=== PATIENT | male | born 1970 | race Asian ===

== ENCOUNTER 2023-07-05 09:07 | Inpatient (IN) ==
[2023-07-05 11:18] LABS: ABS Lymphocytes 0.4 10^3/uL (1.0-4.8); ABS Monocytes 0.3 10^3/uL (0.0-1.1); ABS Neutrophils 5.7 10^3/uL (1.5-7.6); ABS Nucleated RBC 0.02 10^3/ul; Eosinophil % 0.3 %; Hemoglobin 13.1 g/dL (13.2-16.3); Lymphocyte % 6.6 %; Mean Corpuscular Hemoglobin 32.2 pg (27-33); Mean Corpuscular Hgb Conc 34.5 g/dL (31-36); Mean Corpuscular Volume 93.3 fL (80-97); Mean Platelet Volume 7.8 fL (7.5-11.2); Nucleated Red Blood Cells % 0.3 %/100WBC (0.0-0.8); Platelet Count 273 10^3/uL (150-450); Red Blood Count 4.07 10^6/uL (4.06-5.63); White Blood Count 6.5 10^3/uL (3.6-10.2)
[2023-07-05] MEDS ORDERED: NS 0.9% 1000 ml BAG 1,000 ML IV ONE ×2 (11:31→11:47)
[2023-07-05 11:35] LABS: Urine Appearance Clear; Urine Bilirubin Negative (Negative); Urine Blood Negative (Negative); Urine Color Yellow; Urine Glucose Negative (Negative); Urine Ketones 1+ (Negative); Urine Nitrite Negative (Negative); Urine Protein 2+(100 mg/dL) (Negative); Urine Urobilinogen Positive (Negative)
[2023-07-05 11:38] LABS: Albumin 4.5 g/dL (3.2-5.2); Albumin/Globulin Ratio 1.5 (1-3); Calcium 10.3 mg/dL (8.6-10.3); Creatinine, Serum 1.03 mg/dL (0.67-1.17); Globulin 3.1 g/dL (2-4); Potassium 3.8 mmol/L (3.5-5.0); Total Bilirubin 0.9 mg/dL (0.2-1.0); Total Protein 7.6 g/dL (6.4-8.9); eGFR CKD-EPI 87.4 (>60)
[2023-07-05] MEDS ORDERED: Ondansetron 4 mg VIAL 2 MG/ML 2 ml VIAL IV ONE (11:47)
[2023-07-05 11:51] LABS: Urine Bacteria Absent (Absent); Urine Red Blood Cell Trace(0-2/hpf) (Absent); Urine Squamous Epithelial Cell Present (Absent); Urine White Blood Cell Trace(0-5/hpf) (Absent)
[2023-07-05] MEDS ORDERED: Dexamethasone IV 4 MG/ML VIAL 1 ml VIAL IV SLOW PU ONE (12:02)
[2023-07-05] MEDS: Enoxaparin 40 MG/0.4 ML SYR SUBCUT SCH (16:17)
[2023-07-05] MEDS ORDERED: Dexamethasone IV 4 MG/ML VIAL 1 ml VIAL IV SLOW PU SCH (18:00)
[2023-07-05] MEDS ORDERED: Iohexol 350 (CONTRAST) 500 ML MDV IV ONE (19:23)
[2023-07-05] MEDS ORDERED: Gadoteridol (CONTRAST) 279.3 MG/ML 10 ML IV ONE (21:01)
[2023-07-06] MEDS: Dexamethasone IV 4 MG/ML VIAL 1 ml VIAL IV SLOW PU SCH ×4 (00:53→17:44)
[2023-07-06 12:02] LABS: Hematocrit 35.7 % (38-53); Hemoglobin 12.3 g/dL (13.2-16.3); Mean Corpuscular Hgb Conc 34.4 g/dL (31-36); Mean Corpuscular Volume 93.1 fL (80-97); Mean Platelet Volume 7.9 fL (7.5-11.2); Platelet Count 251 10^3/uL (150-450); Red Blood Count 3.84 10^6/uL (4.06-5.63); Red Cell Distribution Width 14.7 % (12-17); White Blood Count 8.4 10^3/uL (3.6-10.2)
[2023-07-06 12:15] LABS: Calcium 9.7 mg/dL (8.6-10.3); Creatinine, Serum 1.07 mg/dL (0.67-1.17); Magnesium 1.8 mg/dL (1.9-2.7); Potassium 3.7 mmol/L (3.5-5.0); eGFR CKD-EPI 83.5 (>60)
[2023-07-06] MEDS ORDERED: Ondansetron 4 mg VIAL 2 MG/ML 2 ml VIAL IV PRN (12:46)
[2023-07-06] MEDS: Enoxaparin 40 MG/0.4 ML SYR SUBCUT SCH (16:41)
[2023-07-07] MEDS: Dexamethasone IV 4 MG/ML VIAL 1 ml VIAL IV SLOW PU SCH ×4 (00:15→17:47)
[2023-07-08] MEDS: Dexamethasone IV 4 MG/ML VIAL 1 ml VIAL IV SLOW PU SCH ×3 (00:55→12:49)
[2023-07-08 12:47] VITALS: BP 160/85
== END 2023-07-08 16:34 | disposition home or self-care (01) | DRG 136 ==
LOC: ED 09:07 → EDHOLD 09:07 → SUATTDRO 15:29 → EDHOLD 07-06 16:06 → MEDTELE 07-06 16:56
PROVIDERS: ADMIT Student in an Organized Health Care Education/Training Program; ATTEND Hospitalist

== ENCOUNTER 2023-08-09 19:40 | Inpatient (IN) ==
[2023-08-09] MEDS ORDERED: Ondansetron 4 mg VIAL 2 MG/ML 2 ml VIAL IV ONE (20:08)
[2023-08-09] MEDS ORDERED: Dexamethasone IV 4 MG/ML VIAL 1 ml VIAL IV SLOW PU ONE (20:09)
[2023-08-09 20:44] LABS: INR 0.97 (0.83-1.13)
[2023-08-09 20:47] LABS: Hematocrit 41.9 % (38-53); Hemoglobin 14.2 g/dL (13.2-16.3); Mean Corpuscular Hemoglobin 31.1 pg (27-33); Mean Corpuscular Hgb Conc 33.9 g/dL (31-36); Mean Corpuscular Volume 91.7 fL (80-97); Mean Platelet Volume 7.1 fL (7.5-11.2); Platelet Count 270 10^3/uL (150-450); Red Blood Count 4.57 10^6/uL (4.06-5.63); Red Cell Distribution Width 16.1 % (12-17); White Blood Count 15.9 10^3/uL (3.6-10.2)
[2023-08-09 21:07] LABS: ALT 36 U/L (7-52); AST 24 U/L (13-39); Albumin 3.9 g/dL (3.2-5.2); Albumin/Globulin Ratio 1.3 (1-3); Alkaline Phosphatase 144 U/L (35-149); Anion Gap 11 mmol/L (2-16); Blood Urea Nitrogen 31 mg/dL (6-24); C Reactive Protein 19.84 mg/L (<8.01); CO2 Carbon Dioxide 26 mmol/L (22-32); Calcium 9.4 mg/dL (8.6-10.3); Chloride 94 mmol/L (101-111); Creatinine, Serum 0.71 mg/dL (0.67-1.17); Glucose 207 mg/dL (70-100); Magnesium 2.1 mg/dL (1.9-2.7); Potassium 3.6 mmol/L (3.5-5.0); Sodium 131 mmol/L (135-145); Total Bilirubin 1.1 mg/dL (0.2-1.0); Total Protein 6.9 g/dL (6.4-8.9); eGFR CKD-EPI 110.4 (>60)
[2023-08-09 21:20] LABS: ABS Basophils 0.1 10^3/uL (0.0-0.1); ABS Lymphocytes 0.1 10^3/uL (1.0-4.8); ABS Monocytes 0.5 10^3/uL (0.0-1.1); ABS Neutrophils 15.2 10^3/uL (1.5-7.6); ABS Nucleated RBC 0.04 10^3/ul; Lymphocyte % 0.9 %; Nucleated Red Blood Cells % 0.3 %/100WBC (0.0-0.8)
[2023-08-09 21:21] LABS: Alcohol, S < 13 mg/dL (<13); RBC Morphology Normal (Normal)
[2023-08-09] MEDS ORDERED: Ondansetron 4 mg VIAL 2 MG/ML 2 ml VIAL IV PRN (22:06)
[2023-08-10] MEDS: Dexamethasone IV 4 MG/ML VIAL 1 ml VIAL IV SLOW PU SCH ×4 (03:11→20:42)
[2023-08-10] MEDS: NS 0.9% 1000 ml BAG 1,000 ML IV SCH (08:28)
[2023-08-10] MEDS: Metoprolol Tartrate 5 mg VIAL 5 ml VIAL (1 mg/ml) IV PRN (18:02)
[2023-08-11] MEDS: Dexamethasone IV 4 MG/ML VIAL 1 ml VIAL IV SLOW PU SCH ×4 (03:13→21:04)
[2023-08-11] MEDS: Metoprolol Tartrate 5 mg VIAL 5 ml VIAL (1 mg/ml) IV PRN ×3 (06:42→21:04)
[2023-08-11 07:45] LABS: ABS Basophils 0.1 10^3/uL (0.0-0.1); ABS Lymphocytes 0.2 10^3/uL (1.0-4.8); ABS Monocytes 0.1 10^3/uL (0.0-1.1); ABS Neutrophils 9.7 10^3/uL (1.5-7.6); ABS Nucleated RBC 0.01 10^3/ul; Hematocrit 39.5 % (38-53); Hemoglobin 13.5 g/dL (13.2-16.3); Lymphocyte % 1.6 %; Mean Corpuscular Hgb Conc 34.1 g/dL (31-36); Mean Corpuscular Volume 90.7 fL (80-97); Nucleated Red Blood Cells % 0.1 %/100WBC (0.0-0.8); Platelet Count 197 10^3/uL (150-450); Red Blood Count 4.36 10^6/uL (4.06-5.63); Red Cell Distribution Width 16.7 % (12-17); White Blood Count 10.1 10^3/uL (3.6-10.2)
[2023-08-11] MEDS: NS 0.9% 1000 ml BAG 1,000 ML IV SCH (08:46)
[2023-08-11 09:00] LABS: Calcium 8.7 mg/dL (8.6-10.3); Creatinine, Serum 0.67 mg/dL (0.67-1.17); Magnesium 2.1 mg/dL (1.9-2.7); Potassium 4.1 mmol/L (3.5-5.0); eGFR CKD-EPI 112.3 (>60)
[2023-08-11] MEDS ORDERED: Morphine 2 MG/ML SYRINGE IV PRN (14:25)
[2023-08-11] MEDS: Morphine 2 MG/ML SYRINGE IV PRN (21:04)
[2023-08-11] MEDS: Nystatin TOP POWDER 15 GM BTL TOPICAL SCH (23:27)
[2023-08-12] MEDS: NS 0.9% 1000 ml BAG 1,000 ML IV SCH (03:50)
[2023-08-12] MEDS: Dexamethasone IV 4 MG/ML VIAL 1 ml VIAL IV SLOW PU SCH ×4 (03:51→20:18)
[2023-08-12] MEDS: Metoprolol Tartrate 5 mg VIAL 5 ml VIAL (1 mg/ml) IV PRN ×3 (03:52→20:18)
[2023-08-12] MEDS: Morphine 2 MG/ML SYRINGE IV PRN ×2 (09:08→16:32)
[2023-08-12] MEDS: Nystatin TOP POWDER 15 GM BTL TOPICAL SCH ×3 (10:51→20:18)
[2023-08-12] MEDS ORDERED: Remdesivir 100 mg Vial 200 MG in NS 0.9% 250 ml 210 ML IV ONE (13:00)
[2023-08-12 13:04] LABS: INR 1.08 (0.83-1.13)
[2023-08-12 14:04] LABS: Albumin 3.2 g/dL (3.2-5.2); Albumin/Globulin Ratio 1.1 (1-3); Creatinine, Serum 0.58 mg/dL (0.67-1.17); Globulin 2.8 g/dL (2-4); Potassium 4.1 mmol/L (3.5-5.0); Total Bilirubin 1.2 mg/dL (0.2-1.0); eGFR CKD-EPI 117.3 (>60)
[2023-08-12] MEDS ORDERED: PPN (PERIPHERAL) 24 HR with D10W 1000 ml BAG 1,000 ML, Amino Acid Infusion 10% 850 ML, ... IV SCH (17:00)
[2023-08-13] MEDS: Metoprolol Tartrate 5 mg VIAL 5 ml VIAL (1 mg/ml) IV PRN ×4 (02:09→23:26)
[2023-08-13] MEDS: Dexamethasone IV 4 MG/ML VIAL 1 ml VIAL IV SLOW PU SCH ×4 (02:16→22:14)
[2023-08-13] MEDS: Morphine 2 MG/ML SYRINGE IV PRN (06:46)
[2023-08-13] MEDS: Remdesivir 100 mg Vial 100 MG in NS 0.9% 250 ml 230 ML IV SCH (08:21)
[2023-08-13] MEDS: Nystatin TOP POWDER 15 GM BTL TOPICAL SCH ×3 (08:21→22:14)
[2023-08-13 09:05] LABS: INR 1.16 (0.83-1.13)
[2023-08-13 09:13] LABS: Albumin 3.2 g/dL (3.2-5.2); Albumin/Globulin Ratio 1.2 (1-3); Calcium 9.1 mg/dL (8.6-10.3); Creatinine, Serum 0.55 mg/dL (0.67-1.17); Globulin 2.6 g/dL (2-4); Magnesium 2.2 mg/dL (1.9-2.7); Phosphorus 2.4 mg/dL (2.5-5.0); Total Bilirubin 1.2 mg/dL (0.2-1.0); Total Protein 5.8 g/dL (6.4-8.9); eGFR CKD-EPI 119.2 (>60)
[2023-08-13] MEDS: PPN (PERIPHERAL) 24 HR with D10W 1000 ml BAG 1,000 ML, Amino Acid Infusion 10% 850 ML, ... IV SCH ×2 (17:23→17:30)
[2023-08-13] MEDS ORDERED: Dextrose 50% Syringe 50 ml 25 GM/50 ML SYRINGE IV PUSH PRN (20:24)
[2023-08-14] MEDS: Dexamethasone IV 4 MG/ML VIAL 1 ml VIAL IV SLOW PU SCH ×4 (03:29→20:29)
[2023-08-14] MEDS: Metoprolol Tartrate 5 mg VIAL 5 ml VIAL (1 mg/ml) IV PRN (06:28)
[2023-08-14 07:53] LABS: INR 1.22 (0.83-1.13)
[2023-08-14 08:10] LABS: Prealbumin 13 mg/dL (18-38)
[2023-08-14] MEDS: Remdesivir 100 mg Vial 100 MG in NS 0.9% 250 ml 230 ML IV SCH (08:30)
[2023-08-14 08:43] LABS: ALT 22 U/L (7-52); Albumin 3.3 g/dL (3.2-5.2); Albumin/Globulin Ratio 1.3 (1-3); Alkaline Phosphatase 159 U/L (35-149); Anion Gap 10 mmol/L (2-16); Blood Urea Nitrogen 37 mg/dL (6-24); CO2 Carbon Dioxide 25 mmol/L (22-32); Calcium 9.4 mg/dL (8.6-10.3); Chloride 102 mmol/L (101-111); Cholesterol 230 mg/dL; Creatinine, Serum 0.53 mg/dL (0.67-1.17); Globulin 2.6 g/dL (2-4); Glucose 175 mg/dL (70-100); Magnesium 2.2 mg/dL (1.9-2.7); Sodium 137 mmol/L (135-145); Total Bilirubin 1.6 mg/dL (0.2-1.0); Total Protein 5.9 g/dL (6.4-8.9); Triglycerides 148 mg/dL; eGFR CKD-EPI 120.6 (>60)
[2023-08-14] MEDS: Nystatin TOP POWDER 15 GM BTL TOPICAL SCH ×3 (08:49→20:32)
[2023-08-14 13:22] LABS: Phosphorus 2.3 mg/dL (2.5-5.0)
[2023-08-14] MEDS: Morphine 2 MG/ML SYRINGE IV PRN ×2 (16:05→21:14)
[2023-08-14] MEDS: PPN (PERIPHERAL) 24 HR with D10W 1000 ml BAG 1,000 ML, Amino Acid Infusion 10% 850 ML, ... IV SCH (17:11)
[2023-08-15] MEDS: Dexamethasone IV 4 MG/ML VIAL 1 ml VIAL IV SLOW PU SCH ×4 (02:47→20:25)
[2023-08-15 05:24] LABS: INR 1.32 (0.83-1.13)
[2023-08-15 05:25] LABS: Hematocrit 38.7 % (38-53); Hemoglobin 13.3 g/dL (13.2-16.3); Mean Corpuscular Hemoglobin 31.5 pg (27-33); Mean Corpuscular Hgb Conc 34.4 g/dL (31-36); Mean Corpuscular Volume 91.6 fL (80-97); Mean Platelet Volume 8.9 fL (7.5-11.2); Platelet Count 81 10^3/uL (150-450); Red Blood Count 4.22 10^6/uL (4.06-5.63); Red Cell Distribution Width 16.4 % (12-17); White Blood Count 9.8 10^3/uL (3.6-10.2)
[2023-08-15 05:49] LABS: ABS Lymphocytes 0.2 10^3/uL (1.0-4.8); ABS Monocytes 0.1 10^3/uL (0.0-1.1); ABS Neutrophils 9.5 10^3/uL (1.5-7.6); ABS Nucleated RBC 0.03 10^3/ul; Lymphocyte % 1.8 %; Nucleated Red Blood Cells % 0.3 %/100WBC (0.0-0.8); RBC Morphology Normal (Normal)
[2023-08-15 05:58] LABS: ALT 22 U/L (7-52); Albumin 2.9 g/dL (3.2-5.2); Albumin/Globulin Ratio 1.2 (1-3); Alkaline Phosphatase 133 U/L (35-149); Anion Gap 10 mmol/L (2-16); Blood Urea Nitrogen 52 mg/dL (6-24); CO2 Carbon Dioxide 23 mmol/L (22-32); Calcium 9.4 mg/dL (8.6-10.3); Chloride 105 mmol/L (101-111); Cholesterol 194 mg/dL; Globulin 2.5 g/dL (2-4); Glucose 193 mg/dL (70-100); Magnesium 2.4 mg/dL (1.9-2.7); Sodium 138 mmol/L (135-145); Total Bilirubin 1.1 mg/dL (0.2-1.0); Total Protein 5.4 g/dL (6.4-8.9); Triglycerides 305 mg/dL; eGFR CKD-EPI 110.9 (>60)
[2023-08-15 06:07] LABS: Prealbumin 12 mg/dL (18-38)
[2023-08-15] MEDS: Nystatin TOP POWDER 15 GM BTL TOPICAL SCH ×3 (09:00→20:27)
[2023-08-15] MEDS: Remdesivir 100 mg Vial 100 MG in NS 0.9% 250 ml 230 ML IV SCH (09:52)
[2023-08-15] MEDS: Morphine 2 MG/ML SYRINGE IV PRN ×3 (10:44→20:40)
[2023-08-15 12:52] LABS: Anion Gap 9 mmol/L (2-16); Blood Urea Nitrogen 51 mg/dL (6-24); CO2 Carbon Dioxide 23 mmol/L (22-32); Calcium 9.1 mg/dL (8.6-10.3); Chloride 107 mmol/L (101-111); Creatinine, Serum 0.62 mg/dL (0.67-1.17); Glucose 190 mg/dL (70-100); Sodium 139 mmol/L (135-145)
[2023-08-15 13:01] LABS: Potassium, Whole Blood 4.6 mmol/L (3.4-4.5)
[2023-08-15] MEDS: PPN (PERIPHERAL) 24 HR with D10W 1000 ml BAG 1,000 ML, Amino Acid Infusion 10% 850 ML, ... IV SCH (17:38)
[2023-08-16] MEDS: Morphine 2 MG/ML SYRINGE IV PRN ×4 (00:34→17:40)
[2023-08-16] MEDS: Metoprolol Tartrate 5 mg VIAL 5 ml VIAL (1 mg/ml) IV PRN ×3 (02:51→20:06)
[2023-08-16] MEDS: Dexamethasone IV 4 MG/ML VIAL 1 ml VIAL IV SLOW PU SCH ×4 (03:01→20:14)
[2023-08-16 05:44] LABS: INR 1.24 (0.83-1.13)
[2023-08-16 06:09] LABS: ALT 23 U/L (7-52); Albumin 2.9 g/dL (3.2-5.2); Albumin/Globulin Ratio 1.1 (1-3); Alkaline Phosphatase 134 U/L (35-149); Anion Gap 7 mmol/L (2-16); Blood Urea Nitrogen 60 mg/dL (6-24); CO2 Carbon Dioxide 21 mmol/L (22-32); Calcium 9.5 mg/dL (8.6-10.3); Chloride 111 mmol/L (101-111); Cholesterol 201 mg/dL; Globulin 2.6 g/dL (2-4); Glucose 185 mg/dL (70-100); Magnesium 2.6 mg/dL (1.9-2.7); Sodium 139 mmol/L (135-145); Total Bilirubin 0.7 mg/dL (0.2-1.0); Total Protein 5.5 g/dL (6.4-8.9); Triglycerides 558 mg/dL; eGFR CKD-EPI 106.5 (>60)
[2023-08-16 06:17] LABS: Prealbumin 14 mg/dL (18-38)
[2023-08-16] MEDS: Nystatin TOP POWDER 15 GM BTL TOPICAL SCH ×3 (08:09→20:20)
[2023-08-16 08:10] LABS: Potassium, Whole Blood 5.3 mmol/L (3.4-4.5)
[2023-08-16] MEDS: Remdesivir 100 mg Vial 100 MG in NS 0.9% 250 ml 230 ML IV SCH (08:10)
[2023-08-16] MEDS ORDERED: Polyethylene Glycol 3350 17 GM PACKET PO PRN (11:22)
[2023-08-16] MEDS ORDERED: Senna TAB 8.6 mg TAB PO PRN (11:22)
[2023-08-17] MEDS: Dextran 70/Hypromellose Tears Eye Drops 15 ml BTL (for Artificials Tears) BOTH EYES PRN (02:24)
[2023-08-17] MEDS: Dexamethasone IV 4 MG/ML VIAL 1 ml VIAL IV SLOW PU SCH ×4 (02:57→20:10)
[2023-08-17 04:51] LABS: INR 1.23 (0.83-1.13)
[2023-08-17 05:01] LABS: Albumin 2.8 g/dL (3.2-5.2); Albumin/Globulin Ratio 1.1 (1-3); Calcium 9.4 mg/dL (8.6-10.3); Creatinine, Serum 0.92 mg/dL (0.67-1.17); Globulin 2.5 g/dL (2-4); Magnesium 2.6 mg/dL (1.9-2.7); Potassium 4.7 mmol/L (3.5-5.0); Total Protein 5.3 g/dL (6.4-8.9); eGFR CKD-EPI 100.1 (>60)
[2023-08-17] MEDS: Metoprolol Tartrate 5 mg VIAL 5 ml VIAL (1 mg/ml) IV PRN ×6 (06:05→22:16)
[2023-08-17] MEDS: Nystatin TOP POWDER 15 GM BTL TOPICAL SCH ×3 (07:39→20:10)
[2023-08-17] MEDS: Morphine 2 MG/ML SYRINGE IV PRN ×2 (20:09→22:16)
[2023-08-18] MEDS: Morphine 2 MG/ML SYRINGE IV PRN ×5 (00:16→22:10)
[2023-08-18] MEDS: Metoprolol Tartrate 5 mg VIAL 5 ml VIAL (1 mg/ml) IV PRN ×6 (00:17→12:45)
[2023-08-18] MEDS: Dextran 70/Hypromellose Tears Eye Drops 15 ml BTL (for Artificials Tears) BOTH EYES PRN ×2 (00:28→22:14)
[2023-08-18] MEDS: Dexamethasone IV 4 MG/ML VIAL 1 ml VIAL IV SLOW PU SCH ×4 (02:22→20:26)
[2023-08-18 06:54] LABS: ABS Lymphocytes 0.3 10^3/uL (1.0-4.8); ABS Monocytes 0.2 10^3/uL (0.0-1.1); ABS Neutrophils 15.5 10^3/uL (1.5-7.6); ABS Nucleated RBC 0.08 10^3/ul; Hematocrit 37.5 % (38-53); Hemoglobin 12.3 g/dL (13.2-16.3); Lymphocyte % 1.8 %; Mean Corpuscular Hemoglobin 30.4 pg (27-33); Mean Corpuscular Hgb Conc 32.7 g/dL (31-36); Mean Corpuscular Volume 92.9 fL (80-97); Mean Platelet Volume 9.9 fL (7.5-11.2); Nucleated Red Blood Cells % 0.5 %/100WBC (0.0-0.8); Platelet Count 90 10^3/uL (150-450); Red Blood Count 4.04 10^6/uL (4.06-5.63); Red Cell Distribution Width 16.8 % (12-17); White Blood Count 16.1 10^3/uL (3.6-10.2)
[2023-08-18 07:23] LABS: Calcium 9.5 mg/dL (8.6-10.3); Creatinine, Serum 0.94 mg/dL (0.67-1.17); Potassium 4.9 mmol/L (3.5-5.0); eGFR CKD-EPI 97.5 (>60)
[2023-08-18] MEDS: Nystatin TOP POWDER 15 GM BTL TOPICAL SCH ×3 (11:02→20:28)
[2023-08-19] MEDS: Dexamethasone IV 4 MG/ML VIAL 1 ml VIAL IV SLOW PU SCH ×4 (03:12→22:46)
[2023-08-19] MEDS: Acetaminophen IV 1 GM/100ML 1,000 MG/100 ML BAG IV PRN (05:57)
[2023-08-19] MEDS: Nystatin TOP POWDER 15 GM BTL TOPICAL SCH ×2 (08:19→16:34)
[2023-08-19] MEDS ORDERED: Lactated Ringers 1000 ml BAG 1,000 ML IV SCH (15:00)
[2023-08-19] MEDS: Morphine 2 MG/ML SYRINGE IV PRN ×2 (15:50→22:46)
[2023-08-19] MEDS ORDERED: Lorazepam PYXIS KEY PRN ×2 (16:10→16:29)
[2023-08-19] MEDS ORDERED: LORazepam 2 mg VIAL 1 ml IV PUSH ONE (16:10)
[2023-08-19] MEDS ORDERED: LORazepam 2 mg VIAL 1 ml ONE (16:13)
[2023-08-19 20:10] LABS: PCO2 Arterial 49 mmHg (35-45)
[2023-08-19 20:14] LABS: PO2 Arterial 58 mmHg (80-100)
[2023-08-19] MEDS ORDERED: Furosemide 20 mg/2 ml IV VIAL IV SLOW PU ONE (20:25)
[2023-08-19] MEDS ORDERED: PHENYLEPHRINE DRIP IVPREMIX 50 MG/250 ML BAG IV SCH (23:00)
[2023-08-20] MEDS: Morphine 2 MG/ML SYRINGE IV PRN ×9 (00:23→16:56)
[2023-08-20] MEDS: Metoprolol Tartrate 5 mg VIAL 5 ml VIAL (1 mg/ml) IV PRN ×2 (01:34→10:35)
[2023-08-20 02:27] LABS: Anion Gap 9 mmol/L (2-16); Blood Urea Nitrogen 71 mg/dL (6-24); CO2 Carbon Dioxide 20 mmol/L (22-32); Calcium 8.9 mg/dL (8.6-10.3); Chloride 117 mmol/L (101-111); Creatinine, Serum 1.43 mg/dL (0.67-1.17); Glucose 192 mg/dL (70-100); Sodium 146 mmol/L (135-145)
[2023-08-20] MEDS: Dexamethasone IV 4 MG/ML VIAL 1 ml VIAL IV SLOW PU SCH ×4 (02:59→20:45)
[2023-08-20 04:31] LABS: Hematocrit 38.4 % (38-53); Hemoglobin 12.7 g/dL (13.2-16.3); Mean Corpuscular Hemoglobin 31.1 pg (27-33); Mean Corpuscular Hgb Conc 33.1 g/dL (31-36); Mean Platelet Volume 11.1 fL (7.5-11.2); Platelet Count 109 10^3/uL (150-450); Red Blood Count 4.09 10^6/uL (4.06-5.63); Red Cell Distribution Width 17.1 % (12-17)
[2023-08-20 04:55] LABS: Anion Gap 8 mmol/L (2-16); Blood Urea Nitrogen 76 mg/dL (6-24); CO2 Carbon Dioxide 24 mmol/L (22-32); Calcium 9.4 mg/dL (8.6-10.3); Chloride 117 mmol/L (101-111); Creatinine, Serum 1.46 mg/dL (0.67-1.17); Glucose 171 mg/dL (70-100); Sodium 149 mmol/L (135-145); eGFR CKD-EPI 57.5 (>60)
[2023-08-20 05:04] LABS: White Blood Count 7.1 10^3/uL (3.6-10.2)
[2023-08-20 05:06] LABS: ABS Lymphocytes 0.4 10^3/uL (1.0-4.8); ABS Monocytes 0.1 10^3/uL (0.0-1.1); ABS Neutrophils 7.4 10^3/uL (1.5-7.6); ABS Nucleated RBC 0.36 10^3/ul; Anisocytosis 1+; Eosinophil % 0.2 %; Nucleated Red Blood Cells % 4.5 %/100WBC (0.0-0.8); Polychromasia 1+
[2023-08-20 07:50] LABS: Potassium Redraw 5.9 mmol/L (3.5-5.0)
[2023-08-20] MEDS: Nystatin TOP POWDER 15 GM BTL TOPICAL SCH ×4 (08:25→22:39)
[2023-08-20] MEDS ORDERED: SODIUM ZIRCONIUM CYCLOSILICATE 10 GM PACKET PO SCH (10:00)
[2023-08-20] MEDS: LORazepam 2 mg VIAL 1 ml IV PUSH PRN ×2 (11:14)
[2023-08-20] MEDS: Acetaminophen IV 1 GM/100ML 1,000 MG/100 ML BAG IV PRN (11:15)
[2023-08-20] MEDS: Dextran 70/Hypromellose Tears Eye Drops 15 ml BTL (for Artificials Tears) BOTH EYES PRN (19:40)
[2023-08-20 20:12] LABS: Calcium 8.6 mg/dL (8.6-10.3); Creatinine, Serum 2.68 mg/dL (0.67-1.17); Potassium 7.1 mmol/L (3.5-5.0); eGFR CKD-EPI 27.7 (>60)
[2023-08-20] MEDS ORDERED: Dextrose 50% Syringe 50 ml 25 GM/50 ML SYRINGE IV PUSH ONE (20:16)
[2023-08-20] MEDS ORDERED: Furosemide 40 mg/4 ml IV VIAL IV SLOW PU ONE (20:16)
[2023-08-20] MEDS ORDERED: SODIUM ZIRCONIUM CYCLOSILICATE 10 GM PACKET PO ONE (20:17)
[2023-08-20] MEDS ORDERED: CALCIUM GLUCONATE 1GM/50ML NS 1 GM/50 ML BAG IV SCH (21:00)
[2023-08-20 21:03] VITALS: BP 71/58
[2023-08-20 23:44] LABS: Calcium 9.4 mg/dL (8.6-10.3); Creatinine, Serum 2.92 mg/dL (0.67-1.17); Potassium 6.5 mmol/L (3.5-5.0)
== END 2023-08-20 23:20 | disposition expired | DRG 41 ==
LOC: ED 19:40 → EDHOLD 22:06 → SUATTDRO 22:06 → MEDTELE 08-10 03:35 → ICU 08-14 18:46 → MED 08-18 04:10 → ICU 08-19 16:08
PROVIDERS: ADMIT Student in an Organized Health Care Education/Training Program; ATTEND Internal Medicine